=== PATIENT | male | born 1970 | race Caucasian/White ===

== ENCOUNTER → 2023-08-12 | Outpatient (CLI) | payer OTHER ==
[~2023-08-12] MED LIST: ASPIR-LOW81 MG PO; FLEXERIL 1010 MG/TAB PO; LORTAB 7.5/5001 TAB PO; MOTRIN 800800 MG/TAB PO; NAPROSYN500 MG PO; PREDNISONE20 MG PO; XANAX XR1 MG PO
== END ==
LOC: COL.RAD 11:04
DX: Z02.71 Encounter for disability determination (principal); M51.34 Other intervertebral disc degeneration, thoracic region; M51.36 Other intervertebral disc degeneration, lumbar region